=== PATIENT | male | born 1955 | race Caucasian/White ===

== ENCOUNTER 2022-03-26 05:27 | Emergency (ER) | payer OTHER, BC ==
[2022-03-26 05:54] VITALS: TEMP 98.2; BMI 31.7
[2022-03-26 06:30] LABS: BASO % 1.8 % (0-2.0); EOS % 2.4 % (0-4.5); HEMATOCRIT 42.3 % (35.4-49); HEMOGLOBIN 14.8 GM/dL (11.7-16.9); LYMPH % 20.7 % (8-40); MCHC 34.9 g/dl (32.0-35.9); MEAN CELL VOLUME 91.7 fl (80-96); MEAN PLT VOLUME 9.3 fl (7.5-11.1); MONO % 7.5 % (3.8-10.2); NEUT % 67.6 % (42.8-82.8); PLATELET COUNT 205 10^3/uL (134-434); RBC 4.61 M/mm3 (4.00-5.60); RDW 12.7 % (11.9-15.9); WHITE BLOOD COUNT 9.1 K/mm3 (4.0-10.0)
[2022-03-26 06:51] LABS: CALCIUM 8.8 mg/dL (8.5-10.1)
[2022-03-26 06:52] LABS: ALBUMIN 3.6 g/dl (3.4-5.0); BLOOD UREA NITROGEN 20.6 mg/dL (7-18)
[2022-03-26 06:57] LABS: BILIRUBIN,TOTAL 0.3 mg/dL (0.2-1); TOT PROT 6.5 g/dl (6.4-8.2)
[2022-03-26 07:53] VITALS: BP 198/83; PULSE 74; RESP 14
== END 2022-03-26 08:42 | disposition home or self-care (01) ==
LOC: JER 05:27
DX: I10 Essential (primary) hypertension (principal)
CPT/HCPCS: 36415; 71045-TC-FY; 80053; 84484; 85025; 99284-25